=== PATIENT | male | born 1955 | race African-American/Black ===

== ENCOUNTER 2017-07-26 22:19 | Inpatient (IN) | payer OTHER ==
[~2017-07-26] VITALS: Ht 170.2 cm; Wt 78.9 kg
[2017-07-26] MEDS ORDERED: MAG HYDROX/AL HYDROX/SIMETH 30 ML ORAL.SUSP PO PRN (23:45)
[2017-07-26] MEDS ORDERED: ACETAMINOPHEN 325 MG TABLET PO PRN (23:45)
[2017-07-26] MEDS ORDERED: MAGNESIUM HYDROXIDE 2,400 MG/30 ML ORAL.SUSP. PO PRN (23:45)
[2017-07-26] MEDS ORDERED: METHYL SALICYLATE/MENTHOL TOPICAL OINTMENT 29GM TUBE. TP PRN (23:45)
[2017-07-27] MEDS ORDERED: TRIA15CR50 TP (00:02)
[2017-07-27] MEDS ORDERED: ATOR40TA59 PO (00:02)
[2017-07-27] MEDS ORDERED: LISI1TAB5 PO (00:02)
[2017-07-27] MEDS ORDERED: CHOL400T2 PO (00:02)
[2017-07-27] MEDS ORDERED: METO25TA4 PO (00:02)
[2017-07-27] MEDS ORDERED: MULT1TAB52 PO (00:02)
[2017-07-27] MEDS ORDERED: CLOP75TA57 PO (00:02)
[2017-07-27] MEDS ORDERED: HYDR-2762 PO (00:02)
[2017-07-27] MEDS ORDERED: SILD100T PO (00:02)
[2017-07-27] MEDS ORDERED: CETI10TA16 PO (00:02)
[2017-07-27] MEDS ORDERED: TRIAMCINOLONE ACETONIDE 0.1% TOPICAL CREAM 15GM TUBE. TP PRN (00:15)
[2017-07-27] MEDS ORDERED: HYDROcodone/APAP 7.5/325MG 1 TAB TABLET PO PRN (00:15)
[2017-07-27 00:30] VITALS: BP 118/80
[2017-07-27 07:40] LABS: BASO % 0 % (0-3); EOS # 0.1 x10^3/uL (0.0-0.7); EOS % 2 % (0-3); HEMATOCRIT 41.8 % (39.0-53.0); HEMOGLOBIN 13.7 g/dL (13.0-17.5); LYMPH # 1.8 x10^3/uL (1.0-4.8); LYMPH % 32 % (24-48); MEAN CORPUSCULAR HEMOGLOBIN 28 pg (25-35); MEAN CORPUSCULAR HGB CONC 33 g/dL (31-37); MEAN CORPUSCULAR VOLUME 87 fL (79-100); MONO # 0.4 x10^3/uL (0.0-1.1); MONO % 7 % (0-9); NEUT # 3.3 x10^3uL (1.8-7.7); NEUT % 59 % (31-73); PLATELET COUNT 206 x10^3/uL (140-400); RED CELL DISTRIBUTION WIDTH 12.8 % (11.5-14.5); WHITE BLOOD COUNT 5.7 x10^3/uL (4.0-11.0)
[2017-07-27 07:51] LABS: ALBUMIN 3.3 g/dL (3.4-5.0); ALBUMIN/GLOBULIN RATIO 0.9 (1.0-1.7); CREATININE 0.8 mg/dL (0.7-1.3); GFR 119.3; TOTAL BILIRUBIN 0.4 mg/dL (0.2-1.0); TOTAL PROTEIN 6.8 g/dL (6.4-8.2)
[2017-07-27 08:18] LABS: CALCIUM 8.4 mg/dL (8.5-10.1)
[2017-07-27] MEDS ORDERED: OLANZapine 2.5 MG TABLET PO PRN (08:45)
[2017-07-27] MEDS: hydroCHLOROthiazide 12.5 MG CAPSULE PO SCH ×2 (08:59→09:00)
[2017-07-27] MEDS: MULTIVITAMIN with MINERAL TABLET. PO SCH ×2 (08:59→09:00)
[2017-07-27] MEDS: LISINOPRIL 20 MG TABLET PO SCH ×2 (08:59→09:00)
[2017-07-27] MEDS: CLOPIDOGREL BISULFATE 75 MG TABLET PO SCH ×2 (08:59→09:00)
[2017-07-27] MEDS: CHOLECALCIFEROL (VITAMIN D3) 1,000 UNIT TABLET PO SCH (09:00)
[2017-07-27] MEDS ORDERED: CETIRIZINE HCL 10 MG TABLET PO PRN (09:00)
[2017-07-27] MEDS: METOPROLOL TART IMMED RELEASE 25 MG TABLET PO SCH ×2 (09:00→20:08)
[2017-07-27 14:33] LABS: THYROID STIM HORMONE (TSH) 0.412 uIU/mL (0.358-3.740)
[2017-07-27] MEDS ORDERED: OLAN5TAB5 PO (17:38)
[2017-07-27] MEDS ORDERED: HYDR12.58 PO (17:41)
--- NOTE | 2017-07-27 18:18 | PDOC ---
Exam Note: Emil Note: Please also refer to the separate dictated note~for this date of service dictated separately.~Patient seen individually. Discussed the patient with Nursing staff reviewed the chart.~Reviewed interim history and current functioning. Reviewed vital signs,~Labs/ Radiology~and current medications noted below. Continue current treatment with the changes noted in the dictated addendum note Assessment: Vital Signs: Vital Signs Date Time Temp Pulse Resp B/P (MAP) Pulse Ox O2 Delivery O2 Flow Rate FiO2 07/27/17 00:30 98.4 61 20 118/80 (93) 96 Labs: Laboratory Tests Test 07/27/17 06:55 White Blood Count 5.7 x10^3/uL (4.0-11.0) Red Blood Count 4.80 x10^6/uL (4.30-5.70) Hemoglobin 13.7 g/dL (13.0-17.5) Hematocrit 41.8 % (39.0-53.0) Mean Corpuscular Volume 87 fL (79-100) Mean Corpuscular Hemoglobin 28 pg (25-35) Mean Corpuscular Hemoglobin Concent 33 g/dL (31-37) Red Cell Distribution Width 12.8 % (11.5-14.5) Platelet Count 206 x10^3/uL (140-400) Neutrophils (%) (Auto) 59 % (31-73) Lymphocytes (%) (Auto) 32 % (24-48) Monocytes (%) (Auto) 7 % (0-9) Eosinophils (%) (Auto) 2 % (0-3) Basophils (%) (Auto) 0 % (0-3) Neutrophils # (Auto) 3.3 x10^3uL (1.8-7.7) Lymphocytes # (Auto) 1.8 x10^3/uL (1.0-4.8) Monocytes # (Auto) 0.4 x10^3/uL (0.0-1.1) Eosinophils # (Auto) 0.1 x10^3/uL (0.0-0.7) Basophils # (Auto) 0.0 x10^3/uL (0.0-0.2) Sodium Level 142 mmol/L (136-145) Potassium Level 4.0 mmol/L (3.5-5.1) Chloride Level 106 mmol/L (98-107) Carbon Dioxide Level 26 mmol/L (21-32) Anion Gap 10 (6-14) Blood Urea Nitrogen 14 mg/dL (8-26) Creatinine 0.8 mg/dL (0.7-1.3) Estimated GFR (Cockcroft-Gault) 119.3 BUN/Creatinine Ratio 18 (6-20) Glucose Level 121 mg/dL (70-99) H Calcium Level 8.4 mg/dL (8.5-10.1) L Magnesium Level 2.0 mg/dL (1.8-2.4) Iron Level 92 ug/dL (65-175) Total Iron Binding Capacity 241 ug/dL (250-450) L Iron Saturation 38 % (15-34) H Total Bilirubin 0.4 mg/dL (0.2-1.0) Aspartate Amino Transferase (AST) 21 U/L (15-37) Alanine Aminotransferase (ALT) 34 U/L (16-63) Alkaline Phosphatase 63 U/L (46-116) Total Protein 6.8 g/dL (6.4-8.2) Albumin 3.3 g/dL (3.4-5.0) L Albumin/Globulin Ratio 0.9 (1.0-1.7) L Triglycerides Level 83 mg/dL (0-150) Cholesterol Level 136 mg/dL (0-200) LDL Cholesterol, Calculated 87 mg/dL (0-100) VLDL Cholesterol, Calculated 16 mg/dL (0-40) Non-HDL Cholesterol Calculated 103 mg/dL (0-129) HDL Cholesterol 33 mg/dL (40-60) L Cholesterol/HDL Ratio 4.0 Vitamin B12 Level 401 pg/mL (247-911) 25-Hydroxy Vitamin D Total 18.8 ng/mL (30-100) L Thyroid Stimulating Hormone (TSH) 0.412 uIU/mL (0.358-3.740) Current Medications: Meds: Current Medications Acetaminophen (Tylenol) 650 mg PRN Q6HRS PRN PO PAIN / TEMP; Start 07/26/17 at 23:45 Multi-Ingredient Ointment (Analgesic [place]) 1 trung PRN QID PRN TP MUSCLE PAIN; Start 07/26/17 at 23:45 Al Hydroxide/Mg Hydroxide (Mylanta Plus Xs) 15 ml PRN AFTMEALHC PRN PO DYSPEPSIA; Start 07/26/17 at 23:45 Magnesium Hydroxide (Milk Of Magnesia) 2,400 mg PRN QHS PRN PO CONSTIPATION; Start 07/26/17 at 23:45 Clopidogrel Bisulfate (Plavix) 75 mg DAILY PO ; Start 07/27/17 at 09:00 Acetaminophen/ Hydrocodone Bitart (Lortab 7.5/325) 1 tab PRN Q6HRS PRN PO PAIN ; Start 07/27/17 at 00:15 Metoprolol Tartrate (Lopressor) 12.5 mg BID PO ; Start 07/27/17 at 09:00 Atorvastatin Calcium (Lipitor) 40 mg QHS PO ; Start 07/27/17 at 21:00 Cetirizine HCl (ZyrTEC) 10 mg PRN DAILY PRN PO ALLERGIES; Start 07/27/17 at 09: 00 Vitamin D (Vitamin D3) 500 unit DAILY PO ; Start 07/27/17 at 09:00 Lisinopril (Prinivil) 20 mg DAILY PO ; Start 07/27/17 at 09:00 Multivitamins/ Calcium (Thera-M Plus) 1 tab DAILY PO ; Start 07/27/17 at 09:00 Triamcinolone Acetonide (Kenalog) 1 trung PRN BID PRN TP RASH; Start 07/27/17 at 00:15 Hydrochlorothiazide (Microzide) 12.5 mg DAILY PO ; Start 07/27/17 at 09:00 Olanzapine (ZyPREXA) 2.5 mg PRN Q2HR PRN PO agitation; Start 07/27/17 at 08:45 ; Stop 07/27/17 at 08:55; Status DC Olanzapine (ZyPREXA ZYDIS) 2.5 mg PRN Q2HR PRN PO AGITATION; Start 07/27/17 at 09:00; Stop 07/27/17 at 09:07; Status DC Olanzapine (ZyPREXA ZYDIS) 2.5 mg PRN Q2HR PRN PO PSYCHOSIS; Start 07/27/17 at 09:00 Active Scripts Active Reported Hydrochlorothiazide Tablet (Hydrochlorothiazide) 12.5 Mg Tablet 1 Tab PO DAILY Zyprexa Zydis (Olanzapine) 5 Mg Tab.rapdis 2.5 Mg PO PRN Q2HR PRN MDD 10mg/24hr 2.5mg PO PRN q2h for agitation; max 10mg/24h Multivitamins (Multivitamin) 1 Each Tablet 1 Tab PO DAILY Vitamin D3 (Cholecalciferol (Vitamin D3)) 400 Unit Tablet 400 Unit PO DAILY Triamcinolone Acetonide 15 Gm Cream..g. 1 Trung TP BID PRN Metoprolol Tartrate 25 Mg Tablet 12.5 Mg PO BID Hydrocodone-Apap 7.5-325 (Hydrocodone Bit/Acetaminophen) 1 Each Tablet 1 Tab PO PRN Q6HRS PRN Lisinopril-Hctz 20-12.5 Mg Tab (Lisinopril/Hydrochlorothiazide) 1 Each Tablet 1 Tab PO DAILY Plavix (Clopidogrel Bisulfate) 75 Mg Tablet 75 Mg PO DAILY Cetirizine Hcl 10 Mg Tablet 10 Mg PO PRN DAILY PRN Atorvastatin Calcium 40 Mg Tablet 40 Mg PO QHS I have reviewed the current psychotropics carefully including drug interactions. Risk benefit ratio favors no change other than as noted in my dictated progress note. Diagnosis: Problems: (1) Anxiety disorder (2) Dementia, vascular, with delusions (3) Dementia, vascular, with depression (4) Impulse control disorder SONU WRIGHT MD July 27, 2017 18:18
--- NOTE | 2017-07-27 19:49 | PDOC ---
Exam Note: Emil Note: Please also refer to the separate dictated note~for this date of service dictated separately.~Patient seen individually. Discussed the patient with Nursing staff reviewed the chart.~Reviewed interim history and current functioning. Reviewed vital signs,~Labs/ Radiology~and current medications noted below. Continue current treatment with the changes noted in the dictated addendum note Assessment: Vital Signs: Vital Signs Date Time Temp Pulse Resp B/P (MAP) Pulse Ox O2 Delivery O2 Flow Rate FiO2 07/27/17 00:30 98.4 61 20 118/80 (93) 96 Labs: Laboratory Tests Test 07/27/17 06:55 White Blood Count 5.7 x10^3/uL (4.0-11.0) Red Blood Count 4.80 x10^6/uL (4.30-5.70) Hemoglobin 13.7 g/dL (13.0-17.5) Hematocrit 41.8 % (39.0-53.0) Mean Corpuscular Volume 87 fL (79-100) Mean Corpuscular Hemoglobin 28 pg (25-35) Mean Corpuscular Hemoglobin Concent 33 g/dL (31-37) Red Cell Distribution Width 12.8 % (11.5-14.5) Platelet Count 206 x10^3/uL (140-400) Neutrophils (%) (Auto) 59 % (31-73) Lymphocytes (%) (Auto) 32 % (24-48) Monocytes (%) (Auto) 7 % (0-9) Eosinophils (%) (Auto) 2 % (0-3) Basophils (%) (Auto) 0 % (0-3) Neutrophils # (Auto) 3.3 x10^3uL (1.8-7.7) Lymphocytes # (Auto) 1.8 x10^3/uL (1.0-4.8) Monocytes # (Auto) 0.4 x10^3/uL (0.0-1.1) Eosinophils # (Auto) 0.1 x10^3/uL (0.0-0.7) Basophils # (Auto) 0.0 x10^3/uL (0.0-0.2) Sodium Level 142 mmol/L (136-145) Potassium Level 4.0 mmol/L (3.5-5.1) Chloride Level 106 mmol/L (98-107) Carbon Dioxide Level 26 mmol/L (21-32) Anion Gap 10 (6-14) Blood Urea Nitrogen 14 mg/dL (8-26) Creatinine 0.8 mg/dL (0.7-1.3) Estimated GFR (Cockcroft-Gault) 119.3 BUN/Creatinine Ratio 18 (6-20) Glucose Level 121 mg/dL (70-99) H Calcium Level 8.4 mg/dL (8.5-10.1) L Magnesium Level 2.0 mg/dL (1.8-2.4) Iron Level 92 ug/dL (65-175) Total Iron Binding Capacity 241 ug/dL (250-450) L Iron Saturation 38 % (15-34) H Total Bilirubin 0.4 mg/dL (0.2-1.0) Aspartate Amino Transferase (AST) 21 U/L (15-37) Alanine Aminotransferase (ALT) 34 U/L (16-63) Alkaline Phosphatase 63 U/L (46-116) Total Protein 6.8 g/dL (6.4-8.2) Albumin 3.3 g/dL (3.4-5.0) L Albumin/Globulin Ratio 0.9 (1.0-1.7) L Triglycerides Level 83 mg/dL (0-150) Cholesterol Level 136 mg/dL (0-200) LDL Cholesterol, Calculated 87 mg/dL (0-100) VLDL Cholesterol, Calculated 16 mg/dL (0-40) Non-HDL Cholesterol Calculated 103 mg/dL (0-129) HDL Cholesterol 33 mg/dL (40-60) L Cholesterol/HDL Ratio 4.0 Vitamin B12 Level 401 pg/mL (247-911) 25-Hydroxy Vitamin D Total 18.8 ng/mL (30-100) L Thyroid Stimulating Hormone (TSH) 0.412 uIU/mL (0.358-3.740) Thyroxine (T4) 6.0 ug/dL (4.5-12.0) Total Triiodothyronine (TT3) 105 ng/dL (71-180) Rapid Plasma Reagin Pending Current Medications: Meds: Current Medications Acetaminophen (Tylenol) 650 mg PRN Q6HRS PRN PO PAIN / TEMP; Start 07/26/17 at 23:45 Multi-Ingredient Ointment (Analgesic [place]) 1 trung PRN QID PRN TP MUSCLE PAIN; Start 5/24/18 at 23:45 Al Hydroxide/Mg Hydroxide (Mylanta Plus Xs) 15 ml PRN AFTMEALHC PRN PO DYSPEPSIA; Start 07/26/17 at 23:45 Magnesium Hydroxide (Milk Of Magnesia) 2,400 mg PRN QHS PRN PO CONSTIPATION; Start 07/26/17 at 23:45 Clopidogrel Bisulfate (Plavix) 75 mg DAILY PO ; Start 07/27/17 at 09:00 Acetaminophen/ Hydrocodone Bitart (Lortab 7.5/325) 1 tab PRN Q6HRS PRN PO PAIN ; Start 07/27/17 at 00:15 Metoprolol Tartrate (Lopressor) 12.5 mg BID PO ; Start 07/27/17 at 09:00 Atorvastatin Calcium (Lipitor) 40 mg QHS PO ; Start 07/27/17 at 21:00 Cetirizine HCl (ZyrTEC) 10 mg PRN DAILY PRN PO ALLERGIES; Start 07/27/17 at 09: 00 Vitamin D (Vitamin D3) 500 unit DAILY PO ; Start 07/27/17 at 09:00 Lisinopril (Prinivil) 20 mg DAILY PO ; Start 07/27/17 at 09:00 Multivitamins/ Calcium (Thera-M Plus) 1 tab DAILY PO ; Start 07/27/17 at 09:00 Triamcinolone Acetonide (Kenalog) 1 trung PRN BID PRN TP RASH; Start 07/27/17 at 00:15 Hydrochlorothiazide (Microzide) 12.5 mg DAILY PO ; Start 07/27/17 at 09:00 Olanzapine (ZyPREXA) 2.5 mg PRN Q2HR PRN PO agitation; Start 07/27/17 at 08:45 ; Stop 07/27/17 at 08:55; Status DC Olanzapine (ZyPREXA ZYDIS) 2.5 mg PRN Q2HR PRN PO AGITATION; Start 07/27/17 at 09:00; Stop 07/27/17 at 09:07; Status DC Olanzapine (ZyPREXA ZYDIS) 2.5 mg PRN Q2HR PRN PO PSYCHOSIS; Start 07/27/17 at 09:00 Active Scripts Active Reported Hydrochlorothiazide Tablet (Hydrochlorothiazide) 12.5 Mg Tablet 1 Tab PO DAILY Zyprexa Zydis (Olanzapine) 5 Mg Tab.rapdis 2.5 Mg PO PRN Q2HR PRN MDD 10mg/24hr 2.5mg PO PRN q2h for agitation; max 10mg/24h Multivitamins (Multivitamin) 1 Each Tablet 1 Tab PO DAILY Vitamin D3 (Cholecalciferol (Vitamin D3)) 400 Unit Tablet 400 Unit PO DAILY Triamcinolone Acetonide 15 Gm Cream..g. 1 Trung TP BID PRN Metoprolol Tartrate 25 Mg Tablet 12.5 Mg PO BID Hydrocodone-Apap 7.5-325 (Hydrocodone Bit/Acetaminophen) 1 Each Tablet 1 Tab PO PRN Q6HRS PRN Lisinopril-Hctz 20-12.5 Mg Tab (Lisinopril/Hydrochlorothiazide) 1 Each Tablet 1 Tab PO DAILY Plavix (Clopidogrel Bisulfate) 75 Mg Tablet 75 Mg PO DAILY Cetirizine Hcl 10 Mg Tablet 10 Mg PO PRN DAILY PRN Atorvastatin Calcium 40 Mg Tablet 40 Mg PO QHS I have reviewed the current psychotropics carefully including drug interactions. Risk benefit ratio favors no change other than as noted in my dictated progress note. Diagnosis: Problems: (1) Anxiety disorder (2) Impulse control disorder (3) Dementia, vascular, with depression (4) Dementia, vascular, with delusions SONU WRIGHT MD July 27, 2017 19:49
[2017-07-27 20:08] VITALS: BP 118/80
[2017-07-27] MEDS ORDERED: ATORVASTATIN CALCIUM 20 MG TABLET PO SCH (21:00)
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
[2017-07-28 01:08] LABS: HEMOGLOBIN A1C 6.1 % (4.8-5.6)
--- NOTE | 2017-07-28 19:30 | HP ---
ADMIT DATE: 07/27/2017 ADMISSION PSYCHIATRIC HISTORY/DISCHARGE SUMMARY This is a late entry 07/27/2017, covers the elements not covered in my initial note, 07/27/2017. IDENTIFYING DATA: The patient is a 62-year-old -Israeli male referred to us from the [facility] in [place], [place], where he presented at the Emergency Room. The patient has a history of dementia, which is multifactorial consequent to his past substance abuse, status post CVA and vascular dementia. He has also had a TBI. He had been increasingly agitated, aggressive, threatening towards others with increased confusion. In the past, he was living on the streets and behaviors were deemed extremely dangerous, out of control, presented to the ER, and then referred to us for inpatient psychiatric stabilization. CHIEF COMPLAINT: "I am waiting to see the doctor." The patient is quite confused. I have discussed with the nursing staff several times on 07/26/2017, prior to the patient's admission to review information from the ER at the [facility] and then seen the patient evening of 07/27/2017. Discussed with Terri, social service staff on several occasions on 07/27/2017, and also with the nursing staff all day on 07/27/2017, where the patient has been getting increasingly agitated, aggressive, disruptive, and paranoid. Finally, he was deemed to be potentially unmanageable the unit and even though, he did not acted out the potential of aggression given his young age and physical strength amongst are really elderly demented ladies was problematic in the [facility], very kindly agreed to take him on their inpatient psychiatry Service. HISTORY OF PRESENT ILLNESS: In addition to what is noted above, the patient has had a history of mood swings, but no clear history of bipolar disorder. No active suicidal ideation, but is confusion, impulse control, getting onto the streets, oblivious of any dangers around him makes him danger to himself as well. PAST PSYCHIATRIC HISTORY: As above. MEDICAL HISTORY: Hypertension, hyperlipidemia, coronary artery disease with stents, degenerative disk disease, status post CVA, TBI, , cervical myelopathy, erectile dysfunction. CODE STATUS: Full code. ALLERGIES: TRAMADOL. ACCU-CHEKS: None. DIET: Regular. MEDICATIONS: Takes his medications whole though he has been refusing all medications since being on the unit. Ambulates ad koko. CURRENT PSYCHOTROPICS: Negative. FAMILY HISTORY: Noncontributory. SOCIAL HISTORY: Alcohol, polysubstance abuse noted above. MENTAL STATUS EXAM: The patient was seen individually evening of 07/27/2017. He is oriented to himself, anxious, restless, somewhat paranoid. Insight, judgment, recent and remote memory, attention, concentration, fund of knowledge poor, consistent with his diagnosis. IMPRESSION: Major neurocognitive disorder, multifactorial, probably status post cerebrovascular accident, vascular traumatic possibly Alzheimer's and secondary to polysubstance abuse with delusion, behavioral disturbance, impulse control disorder, unspecified; anxiety disorder, unspecified. Rest as above. PLAN: Admit to Geropsychiatry Unit at [facility]. The patient was admitted evening of 07/26/2017. All day on 07/27/2017, I had several conversations with the nursing staff and [facility], social service staff regarding the patient's unmanageable behaviors on the unit. I talked to the physician from the [facility] and they agreed to take him on the inpatient psychiatry service. He was refusing all psychotropics and no changes were made though the consideration was given to intramuscular Haldol, Ativan, but this was not initiated since he was being transferred. FINAL DIAGNOSES: Is as above. DISCHARGE MEDICATIONS: Please refer to the [facility]. Further psychiatric and medical followup at the [facility]. MAN Lou WRIGHT MD DR: SID/yas JOB#: [id number] / [id number]
== END 2017-07-27 21:38 | disposition home or self-care (01) | DRG 884 ==
LOC: GEROPSY 22:32
PROVIDERS: ADMIT Psychiatry & Neurology Psychiatry; ATTEND Psychiatry & Neurology Psychiatry
DX: F01.51 Vascular dementia, unspecified severity, with behavioral disturbance (principal); E78.5 Hyperlipidemia, unspecified; F17.210 Nicotine dependence, cigarettes, uncomplicated; M54.9 Dorsalgia, unspecified; F19.10 Other psychoactive substance abuse, uncomplicated; G89.29 Other chronic pain; F32.9 Major depressive disorder, single episode, unspecified; F41.9 Anxiety disorder, unspecified; F63.9 Impulse disorder, unspecified; I10 Essential (primary) hypertension; I25.10 Atherosclerotic heart disease of native coronary artery without angina pectoris; Z86.73 Personal history of transient ischemic attack (TIA), and cerebral infarction without residual deficits; Z95.5 Presence of coronary angioplasty implant and graft; Z88.8 Allergy status to other drugs, medicaments and biological substances
CPT/HCPCS: 36415; 80053; 80061; 82306; 82607; 83036; 83540; 83550; 83735; 84436; 84443; 84480; 85025; 86593